=== PATIENT | female | born 1995 | race Caucasian/White ===

== ENCOUNTER 2017-02-10 22:52 | Emergency (ER) | payer OTHER ==
[2017-02-10 22:58] VITALS: TEMP 37.1; Ht 162.6 cm
[2017-02-10] MEDS ORDERED: LEVO75TA PO (23:16)
[2017-02-10] MEDS ORDERED: ASPI81TA28 PO (23:16)
[2017-02-10] MEDS ORDERED: FOLI5CAP PO (23:16)
[2017-02-10] MEDS ORDERED: SODIUM CHLORIDE 0.9% 1000ML 1,000 ML IV STA (23:36)
[2017-02-10 23:52] LABS: BASO % 0.2 %; BASO ABS # 0.02 K/uL (0-0.2); COMPLETE YES; EOS % 1.7 %; HEMATOCRIT 33.3 % (37-47); IG% 0.2 %; LYMPH ABS # 1.97 K/uL (1.2-3.4); MEAN CELL VOLUME 80.4 fL (80-100); MEAN CORPUSCULAR HEMOGLOBIN 27.1 pg (25-34); MEAN CORPUSCULAR HGB CONC 33.6 g/dl (32-36); MEAN PLATELET VOLUME 10.8 fL (7.4-10.4); MONO % 4.7 %; NEUT % 75.2 %; PLATELET COUNT 251 K/uL (130-400); RED BLOOD COUNT 4.14 M/uL (4.2-5.4); WHITE BLOOD COUNT 10.96 K/uL (4.8-10.8)
[2017-02-11 00:13] LABS: ALT/SGPT 14 U/L (12-78); AST/SGOT 7 U/L (15-37); BLOOD UREA NITROGEN 8 mg/dl (7-18); BUN/CREATININE RATIO 16.7 (10-20); CALCIUM 8.6 mg/dl (8.5-10.1); CARBON DIOXIDE 23 mmol/L (21-32); CHLORIDE 107 mmol/L (98-107); CREATININE 0.45 mg/dl (0.60-1.20); GLUCOSE 96 mg/dl (70-99); POTASSIUM 3.3 mmol/L (3.5-5.1); SODIUM 140 mmol/L (136-145)
[2017-02-11 00:16] LABS: ALB/GLOB RATIO 0.8 (0.9-2); ALKALINE PHOSPHATASE 46 U/L (45-117)
--- NOTE | 2017-02-11 00:51 | EMERGENCY ROOM VISIT NOTE ---
History First contact with patient: 23:13 Chief Complaint: PELVIC PAIN Stated Complaint: CRAMPING, NAUSEA, PELVIC PRESSURE- 16WKS History of Present Illness The patient is a 21 year old female who presents to the Emergency Room with complaints of abdominal cramping. The patient states she is approximately 16 weeks . She has had lower abdominal cramping off and on for the past few weeks. She states that her symptoms worsened today. She states she has been vomiting every time she tries to eat something. She states she has had nausea during this , but not much vomiting. She reports she has become dizzy when standing up and has a headache. She denies any vaginal bleeding, urinary symptoms or changes in bowel movements. She states that she has had some vaginal bleeding earlier during this , but ultrasounds have been negative. She has had 2 prior pregnancies, one of which went to term and one ended in a miscarriage at 17 weeks. The patient sees CHILD DEVELOPMENT DIRECTOR in [place]. Review of Systems A complete 10 point review of systems was reviewed with the patient with pertinent positives and negatives as per history of present illness. All else were negative. Social History Smoking Status: Never Smoker Alcohol Use: none Drug Use: none Housing Status: lives with family Current/Historical Medications Scheduled Aspirin (Aspirin Ec), 81 MG PO DAILY Folic Acid (Folic Acid), 1 CAP PO DAILY Levothyroxine Sodium (Synthroid), 75 MCG PO DAILY Physical Exam Vital Signs Date Time Temp Pulse Resp B/P (MAP) Pulse Ox O2 Delivery O2 Flow Rate FiO2 02/11/17 02:39 85 18 127/70 100 02/11/17 00:48 100 18 138/73 100 Room Air 02/10/17 22:58 37.1 103 18 115/78 97 Room Air Physical Exam VITALS: Vitals are noted on the nurse's note and reviewed by myself. Vital signs stable. GENERAL: This is a 21-year-old female, in no acute distress, nondiaphoretic, well-developed well-nourished. HEENT: Normocephalic. PERRLA. EOMI. Mucous membranes moist. Neck is supple without nuchal rigidity. HEART: Regular rate and rhythm without murmurs gallops or rubs. LUNGS: Clear to auscultation bilaterally without wheezes, rales or rhonchi. ABDOMEN: Positive bowel sounds x 4. Soft, nontender to palpation. NEURO: Patient was alert and oriented to person place and time. Medical Decision & Procedures ER Provider Diagnostic Interpretation: US OB LIMITED: Single live intrauterine measuring 16 weeks 2 days with heart rate of 135 bpm. 2 hypoechoic areas in the placenta measuring up to 2.9 cm without evidence of vascularity. Attention on follow-up recommended. NURIS 11.3 cm Cervix not well visualized. Radiologist: Lalita Chavis MD Laboratory Results 02/10/17 23:40 Red Blood Count 4.14, Mean Corpuscular Volume 80.4, Mean Corpuscular Hemoglobin 27.1, Mean Corpuscular Hemoglobin Concent 33.6, Mean Platelet Volume 10.8, Neutrophils (%) (Auto) 75.2, Lymphocytes (%) (Auto) 18.0, Monocytes (%) (Auto) 4.7, Eosinophils (%) (Auto) 1.7, Basophils (%) (Auto) 0.2, Neutrophils # (Auto) 8.25, Lymphocytes # (Auto) 1.97, Monocytes # (Auto) 0.51, Eosinophils # (Auto) 0.19, Basophils # (Auto) 0.02 02/10/17 23:40 Test 02/10/17 23:40 02/11/17 00:50 White Blood Count 10.96 K/uL (4.8-10.8) Red Blood Count 4.14 M/uL (4.2-5.4) Hemoglobin 11.2 g/dL (12.0-16.0) Hematocrit 33.3 % (37-47) Mean Corpuscular Volume 80.4 fL (80-100) Mean Corpuscular Hemoglobin 27.1 pg (25-34) Mean Corpuscular Hemoglobin Concent 33.6 g/dl (32-36) Platelet Count 251 K/uL (130-400) Mean Platelet Volume 10.8 fL (7.4-10.4) Neutrophils (%) (Auto) 75.2 % Lymphocytes (%) (Auto) 18.0 % Monocytes (%) (Auto) 4.7 % Eosinophils (%) (Auto) 1.7 % Basophils (%) (Auto) 0.2 % Neutrophils # (Auto) 8.25 K/uL (1.4-6.5) Lymphocytes # (Auto) 1.97 K/uL (1.2-3.4) Monocytes # (Auto) 0.51 K/uL (0.11-0.59) Eosinophils # (Auto) 0.19 K/uL (0-0.5) Basophils # (Auto) 0.02 K/uL (0-0.2) RDW Standard Deviation 44.3 fL (36.4-46.3) RDW Coefficient of Variation 15.0 % (11.5-14.5) Immature Granulocyte % (Auto) 0.2 % Immature Granulocyte # (Auto) 0.02 K/uL (0.00-0.02) Anion Gap 10.0 mmol/L (3-11) Estimated GFR () > 150.0 Estimated GFR (Non- 143.2 BUN/Creatinine Ratio 16.7 (10-20) Calcium Level 8.6 mg/dl (8.5-10.1) Total Bilirubin 0.2 mg/dl (0.2-1) Aspartate Amino Transf (AST/SGOT) 7 U/L (15-37) Alanine Aminotransferase (ALT/SGPT) 14 U/L (12-78) Alkaline Phosphatase 46 U/L (45-117) Total Protein 7.1 gm/dl (6.4-8.2) Albumin 3.2 gm/dl (3.4-5.0) Globulin 3.9 gm/dl (2.5-4.0) Albumin/Globulin Ratio 0.8 (0.9-2) Lipase 94 U/L (73-393) Urine Color YELLOW Urine Appearance CLOUDY (CLEAR) Urine pH 7.0 (4.5-7.5) Urine Specific Gregory 1.025 (1.000-1.030) Urine Protein 1+ (NEG) Urine Glucose (UA) NEG (NEG) Urine Ketones NEG (NEG) Urine Occult Blood NEG (NEG) Urine Nitrite NEG (NEG) Urine Bilirubin NEG (NEG) Urine Urobilinogen NEG (NEG) Urine Leukocyte Esterase MODERATE (NEG) Urine WBC (Auto) >30 /hpf (0-5) Urine RBC (Auto) 0-4 /hpf (0-4) Urine Hyaline Casts (Auto) 10-30 /lpf (0-5) Urine Epithelial Cells (Auto) >30 /lpf (0-5) Urine Bacteria (Auto) NEG (NEG) Medications Administered Medications (Trade) Dose Ordered Sig/Lillian Route Start Time Stop Time Status Last Admin Dose Admin Sodium Chloride 1,000 ml @ 999 mls/hr Q1H1M STAT IV 02/10/17 23:36 02/11/17 00:36 DC 02/10/17 23:48 999 MLS/HR ED Course The patient was evaluated as above. Labs were drawn and IV access was obtained. Patient was medicated with 1 L normal saline solution. ultrasound was performed and read by radiology as above. Patient was reevaluated and felt much better. She was able to tolerate water and crackers by mouth. Case was discussed with Dr. Dickson of CHILD DEVELOPMENT DIRECTOR. She felt the patient was stable for discharge home to follow-up with her own CHILD DEVELOPMENT DIRECTOR. Discharge instructions were reviewed with the patient. The patient verbalized understanding of my assessment and treatment plan and was discharged home in good condition. Medical Decision Differential diagnosis includes spontaneous , gastroenteritis, colitis, constipation, appendicitis, cholecystitis, among others. The patient is a 21-year-old female who presents today complaining of abdominal cramping and vomiting. The patient reports the cramping has been ongoing for several weeks. The vomiting began today. Labs revealed a minimal leukocytosis consistent with . Labs were otherwise unremarkable. Urinalysis was suggestive of contamination and will be sent for culture. ultrasound shows a viable IUP. The patient had full improvement of her symptoms with 1 L of normal saline solution. She was able to tolerate fluids and food by mouth. Case was discussed with CHILD DEVELOPMENT DIRECTOR who did not feel that the patient required further monitoring. The patient was reassured and instructed to increase fluids at home. She should call her CHILD DEVELOPMENT DIRECTOR later today to schedule follow-up. She verbalized understanding of my assessment and treatment plan and was discharged home in good condition. Medication Reconcilliation Current Medication List: was personally reviewed by me Blood Pressure Screening Patient's blood pressure: Normal blood pressure Impression Primary Impression: Vomiting during Departure Information Dispostion Home / Self-Care Condition GOOD Referrals Homero Duron D.O. (PCP) Patient Instructions [facility] Additional Instructions For pain control, you can use the following [id number] medicines (if >12 yo): - Regular strength (325mg/tab) Tylenol (acetaminophen) 2 tabs every 4-6 hours as needed. Do not exceed 12 tablets in a 24 hour period. Avoid taking more than 4 grams (4000 mg) of Tylenol per day. This includes any other sources of acetaminophen you may take on a regular basis. Drink plenty of fluids to stay well hydrated. Call your CHILD DEVELOPMENT DIRECTOR for morning to schedule a follow-up appointment. Return to the emergency with any worsening pain, vaginal bleeding, worsening vomiting or any other new/concerning symptoms.
[2017-02-11 01:01] LABS: URINE APPEARANCE CLOUDY (CLEAR); URINE BILIRUBIN NEG (NEG); URINE COLOR YELLOW; URINE EPITHELIAL CELL AUTO >30 /lpf (0-5); URINE NITRITE NEG (NEG); URINE SPECIFIC GRAVITY 1.025 (1.000-1.030); UROBILINOGEN NEG (NEG); ZZUR CULT IF INDIC CLEAN CATCH YES
[2017-02-11 01:22] LABS: MANUAL MICROSCOPIC REQUIRED? NO; REVIEW REQ? NO
[2017-02-11 02:39] VITALS: BP 127/70; PULSE 85; O2SAT 100
--- NOTE | 2017-02-11 07:12 | DIAGNOSTIC IMAGING REPORT ---
LIMITED (US) CLINICAL HISTORY: 21 years-old Female presenting with pelvic cramping, approx 16 wks . TECHNIQUE: Real-time grayscale and color and spectral Doppler ultrasound imaging of the pelvis was performed using a transabdominal probe. COMPARISON: None. FINDINGS: Uterus: Single live intrauterine . Femur length measures 2.1 cm corresponding to an estimated gestational age of 16 weeks 2 days. Biparietal diameter measures 3.3 cm corresponding to an estimated gestational age of 16 weeks 2 days. heart rate 136 beats per minute. Anteverted uterus. Normal amniotic fluid volume, with an amniotic fluid index of 11.3 cm. Small hypoechoic avascular crescentic collection subjacent to the placenta along the right lateral aspect concerning for a perigestational hemorrhage. Additional anechoic, cystic appearing avascular region in the placenta measures 2 cm and is indeterminate. Cervix long and closed.. Right adnexa: Not visualized. Left adnexa: Not visualized. Other: No free fluid. IMPRESSION: Single live intrauterine with estimated gestational age of 16 weeks 2 days. Small perigestational hemorrhage suspected. The avascular cystic appearing 2 cm region in the placenta may represent a placental cyst. Attention on follow-up. Electronically signed by: Michael Cardenas M.D. 02/11/2017 7:11 AM Dictated Date/Time: 02/11/2017 7:06 AM
== END 2017-02-11 02:40 | disposition home or self-care (01) ==
LOC: C.EDB 22:58 → C.EDA 02-11 02:40
DX: O21.9 Vomiting of pregnancy, unspecified (principal); Z3A.16 16 weeks gestation of pregnancy; Z79.82 Long term (current) use of aspirin; Z79.899 Other long term (current) drug therapy

== ENCOUNTER → 2017-04-24 | Outpatient (CLI) | payer OTHER ==
[~2017-04-24] MED LIST: ASPI81TA28 PO; FOLI5CAP PO; LEVO75TA PO
[2017-04-24 14:46] LABS: BASO % 0.2 %; BASO ABS # 0.02 K/uL (0-0.2); COMPLETE YES; EOS % 2.5 %; HEMATOCRIT 31.7 % (37-47); IG% 0.6 %; LYMPH % 13.9 %; LYMPH ABS # 1.57 K/uL (1.2-3.4); MEAN CELL VOLUME 82.3 fL (80-100); MEAN CORPUSCULAR HEMOGLOBIN 27.3 pg (25-34); MEAN CORPUSCULAR HGB CONC 33.1 g/dl (32-36); MEAN PLATELET VOLUME 11.3 fL (7.4-10.4); MONO % 5.8 %; PLATELET COUNT 268 K/uL (130-400); RED BLOOD COUNT 3.85 M/uL (4.2-5.4); WHITE BLOOD COUNT 11.29 K/uL (4.8-10.8)
[2017-04-24 15:07] LABS: THYROID STIMULATING HORMONE 1.21 uIu/ml (0.300-4.500)
[2017-04-24 15:46] LABS: GTGD 50 Grams
[2017-04-24 17:11] LABS: URINE APPEARANCE CLOUDY (CLEAR); URINE BILIRUBIN NEG (NEG); URINE COLOR DK YELLOW; URINE EPITHELIAL CELL AUTO >30 /lpf (0-5); URINE NITRITE NEG (NEG); URINE SPECIFIC GRAVITY 1.024 (1.000-1.030); UROBILINOGEN NEG (NEG)
[2017-04-24 17:22] LABS: MANUAL MICROSCOPIC REQUIRED? NO; REVIEW REQ? YES
== END | disposition home or self-care (01) ==
LOC: C.LAB1850 12:58
PROVIDERS: ATTEND Obstetrics & Gynecology
DX: O99.283 Endocrine, nutritional and metabolic diseases complicating pregnancy, third trimester (principal); Z3A.00 Weeks of gestation of pregnancy not specified; E03.9 Hypothyroidism, unspecified

== ENCOUNTER → 2017-05-10 | Outpatient (CLI) | payer OTHER ==
[2017-05-10 16:10] LABS: MANUAL MICROSCOPIC REQUIRED? NO; REVIEW REQ? YES; URINE APPEARANCE CLOUDY (CLEAR); URINE BILIRUBIN NEG (NEG); URINE COLOR DK YELLOW; URINE EPITHELIAL CELL AUTO >30 /lpf (0-5); URINE NITRITE NEG (NEG); URINE SPECIFIC GRAVITY 1.036 (1.000-1.030); UROBILINOGEN NEG (NEG)
== END | disposition home or self-care (01) ==
LOC: C.LABSPEC 15:15
PROVIDERS: ATTEND Obstetrics & Gynecology
DX: O99.282 Endocrine, nutritional and metabolic diseases complicating pregnancy, second trimester (principal)

== ENCOUNTER → 2017-05-24 | Outpatient (CLI) | payer OTHER ==
[~2017-05-24] MED LIST changes: +PRENTAB26 PO
== END | disposition home or self-care (01) ==
LOC: C.LAB1850 16:17
PROVIDERS: ATTEND Obstetrics & Gynecology
DX: O99.283 Endocrine, nutritional and metabolic diseases complicating pregnancy, third trimester (principal); Z3A.00 Weeks of gestation of pregnancy not specified; E03.9 Hypothyroidism, unspecified

== ENCOUNTER → 2017-07-12 | Outpatient (CLI) | payer OTHER ==
[~2017-07-12] MED LIST changes: -PRENTAB26 PO
[2017-07-12 15:38] LABS: HEMATOCRIT 31.5 % (37-47); HEMOGLOBIN 10.4 g/dL (12.0-16.0); MEAN CELL VOLUME 75.5 fL (80-100); MEAN CORPUSCULAR HEMOGLOBIN 24.9 pg (25-34); MEAN PLATELET VOLUME 10.8 fL (7.4-10.4); PLATELET COUNT 268 K/uL (130-400); RED CELL DISTRIBUTION WIDTH CV 16.1 % (11.5-14.5); RED CELL DISTRIBUTION WIDTH SD 44.3 fL (36.4-46.3); WHITE BLOOD COUNT 10.17 K/uL (4.8-10.8)
[2017-07-12 16:11] LABS: ALBUMIN 2.9 gm/dl (3.4-5.0); ALT/SGPT 12 U/L (12-78); AST/SGOT 8 U/L (15-37); BLOOD UREA NITROGEN 8 mg/dl (7-18); CALCIUM 8.6 mg/dl (8.5-10.1); CARBON DIOXIDE 20 mmol/L (21-32); CREATININE 0.48 mg/dl (0.60-1.20); GLUCOSE 73 mg/dl (70-99); POTASSIUM 3.9 mmol/L (3.5-5.1); SODIUM 135 mmol/L (136-145)
[2017-07-12 16:21] LABS: ALKALINE PHOSPHATASE 130 U/L (45-117); TOTAL PROTEIN 7.2 gm/dl (6.4-8.2)
[2017-07-13 07:01] LABS: HEMOGLOBIN A1C 5.3 % (4.5-5.6)
[2017-07-15 14:30] LABS: MICROSOMAL AB 20 IU/ML (<9)
== END | disposition home or self-care (01) ==
LOC: C.LAB1850 14:04
PROVIDERS: ATTEND Obstetrics & Gynecology
DX: O09.93 Supervision of high risk pregnancy, unspecified, third trimester (principal)

== ENCOUNTER 2017-07-20 22:52 | Outpatient (CLI) | payer OTHER ==
[~2017-07-20] VITALS: Ht 162.6 cm; Wt 122.7 kg
[2017-07-21 00:30] VITALS: Ht 162.6 cm; Wt 122.7 kg
[2017-07-21] MEDS ORDERED: PRENTAB26 PO ×2 (00:30)
== END 2017-07-21 01:45 | disposition home or self-care (01) ==
LOC: C.OPB 22:52 → C.LD 22:53 → C.OPB 07-21 01:45
PROVIDERS: ATTEND Obstetrics & Gynecology
DX: O62.9 Abnormality of forces of labor, unspecified (principal); Z3A.00 Weeks of gestation of pregnancy not specified

== ENCOUNTER 2017-07-21 04:28 | Inpatient (IN) | payer OTHER ==
[~2017-07-21] VITALS: Ht 162.6 cm; Wt 122.0 kg
[~2017-07-21 04:28] MED LIST changes: +PRENTAB26 PO
[2017-07-21] MEDS ORDERED: LACTATED RINGER'S 1000ML 1,000 ML IV PRN (04:59)
[2017-07-21] MEDS ORDERED: LACTATED RINGER'S 1000ML 1,000 ML IV SCH (04:59)
[2017-07-21] MEDS ORDERED: PENICILLIN G POTASSIUM IV 6 MU in DEXTROSE 5% 250ML 250 ML IV ONE (05:00)
[2017-07-21] MEDS ORDERED: PENICILLIN G POTASSIUM IV 3 MU in DEXTROSE 5% 100ML 100 ML IV PRN (05:00)
[2017-07-21 05:09] VITALS: Ht 162.6 cm; Wt 122.0 kg
[2017-07-21] MEDS ORDERED: EpHEDrine SULFATE INJ 50 MG/ML AMP ONE (05:24)
[2017-07-21] MEDS ORDERED: BUPIVACAINE 0.25% 30 ML VIAL ONE (05:24)
[2017-07-21] MEDS ORDERED: FENTANYL 2MCG/ML ROPIV 1.25MG/ML 100ML BAG EPI ONE (05:25)
[2017-07-21] MEDS ORDERED: FENTANYL CITRATE INJ 50 MCG/1 ML 2 ML VIAL ONE (05:25)
[2017-07-21 05:50] LABS: HEMATOCRIT 29.7 % (37-47); HEMOGLOBIN 9.8 g/dL (12.0-16.0); MEAN CELL VOLUME 74.4 fL (80-100); MEAN CORPUSCULAR HEMOGLOBIN 24.6 pg (25-34); MEAN PLATELET VOLUME 10.8 fL (7.4-10.4); PLATELET COUNT 230 K/uL (130-400); WHITE BLOOD COUNT 12.41 K/uL (4.8-10.8)
[2017-07-21] MEDS ORDERED: NALOXONE HCL INJ 1 MG in SODIUM CHLORIDE 0.9% 1000ML 1,000 ML IV PRN ×4 (06:20)
[2017-07-21] MEDS ORDERED: LACTATED RINGER'S 1000ML 500 ML IV PRN ×2 (06:20→07:10)
[2017-07-21] MEDS ORDERED: NALBUPHINE HCL INJ 10 MG/ML AMP IV PRN (06:30)
[2017-07-21] MEDS ORDERED: DiphenhydrAMINE HCL 50 MG/ML VIAL IV PRN (06:30)
[2017-07-21] MEDS ORDERED: EpHEDrine SULFATE INJ 50 MG/ML AMP IV PRN (06:30)
[2017-07-21] MEDS ORDERED: PROMETHAZINE HCL INJ 25 MG in SODIUM CHLORIDE 0.9% 50ML 50 ML IV PRN (06:30)
[2017-07-21] MEDS ORDERED: NALOXONE HCL INJ 0.4 MG/1 ML VIAL/CARP IV PRN (06:30)
[2017-07-21] MEDS ORDERED: FENTANYL 2MCG/ML ROPIV 1.25MG/ML 100ML BAG EPI PRN (06:30)
[2017-07-21] MEDS ORDERED: ONDANSETRON INJ 2 MG/ML 2 ML VIAL IV PRN (06:30)
[2017-07-21] MEDS ORDERED: OXYTOCIN 30 UNITS/500ML NSS IV PRN ×2 (07:15→10:30)
[2017-07-21] MEDS ORDERED: BENZOCAINE 20% AER SPR 82.5 GM CAN EXT PRN (10:30)
[2017-07-21] MEDS ORDERED: LANOLIN OINT EXT PRN (10:30)
[2017-07-21] MEDS ORDERED: HYDROCORTISONE ACETATE 25 MG SUPP PR PRN (10:30)
[2017-07-21] MEDS ORDERED: DIPHTHERIA/TETANUS/PERTUSSIS 0.5 ML SYR/VIAL IM. ONE (10:30)
[2017-07-21] MEDS ORDERED: SUPERCREAM 0.870 % 15GM JAR EXT PRN (10:30)
--- NOTE | 2017-07-21 11:15 | Anesthesia Procedure Note ---
Anesthesia Epidural Removal Nt Date & Time Jul 21, 2017 at 11:15 Vital Signs Pain Intensity: 0.0 Notes Mental Status: alert / awake / arousable, participated in evaluation Nausea / Vomiting: adequately controlled Pain: adequately controlled Airway Patency, RR, SpO2: stable & adequate BP & HR: stable & adequate Hydration State: stable & adequate Neuraxial Anesthesia: was administered, sensory block is resolving Anesthetic Complications: no major complications apparent, pt satisfied with anesthetic care Epidural: removed without complications, with tip intact
--- NOTE | 2017-07-21 13:14 | DELIVERY SUMMARY ---
DATE OF OPERATION: 07/21/2017 VAGINAL DELIVERY NOTE Mery arrived after rupture of membranes on 07/21/2017. She is group B strep positive. Some antibiotics were started. She was 4 cm at that time, requested epidural and then progressed to fully dilated. She delivered over a total pushing of one contraction. She was unable to control her efforts and pushed uncontrollably after delivery of the head. Despite this, there was no tearing. Mouth was suctioned and then cord clamped and cut. Cord gases obtained. Cord blood obtained. Placenta removed with gentle traction. IV Pitocin started. No significant tearing noted. Estimated blood loss 150 mL. I attest to the content of the Intraoperative Record and any orders documented therein. Any exception s are noted below.
[2017-07-21 13:20] VITALS: BP 118/77; PULSE 101; TEMP 37
[2017-07-21 15:30] VITALS: BP 110/64; PULSE 94; TEMP 36.9; O2SAT 98
[2017-07-21] MEDS: IBUPROFEN 600 MG TAB PO PRN (18:05)
[2017-07-21 20:00] VITALS: BP 115/66; PULSE 83; TEMP 36.7; O2SAT 98
[2017-07-21] MEDS: DOCUSATE SODIUM 100 MG CAP PO SCH (20:24)
[2017-07-21 23:35] VITALS: BP 122/73; PULSE 78; TEMP 36.9
[2017-07-22 03:25] VITALS: BP 123/79; PULSE 89; TEMP 37
--- NOTE | 2017-07-22 06:31 | Progress Note ---
Subjective Jul 22, 2017. Subjective conversation w/ patient, chart review, lab review Ambulation: ambulating normally Voiding: no voiding problems Passing Gas: No Diet Tolerance: Regular Diet Lochia: Small Objective Vital Signs Date Time Temp Pulse Resp B/P (MAP) Pulse Ox O2 Delivery O2 Flow Rate FiO2 07/22/17 03:25 37.0 89 18 123/79 (94) Room Air 07/21/17 23:35 36.9 78 18 122/73 (89) Room Air 07/21/17 23:35 Room Air 07/21/17 20:00 36.7 83 20 115/66 (82) 98 Room Air 07/21/17 15:30 36.9 94 20 110/64 (79) 98 Room Air 07/21/17 15:30 Room Air 07/21/17 13:20 37.0 101 20 118/77 (91) Room Air 07/21/17 13:20 Room Air Physical Exam General Appearance: WELL-APPEARING Abdomen: non tender Fundus: Firm Extremities: no calf tenderness Laboratory Results Last 24 Hours Test 07/22/17 05:54 Assessment and Plan Post- Day#: 1 Continue Routine Care: day 1 patient is doing well with minimal bleeding she has no calf tenderness continue current care
[2017-07-22] MEDS: IBUPROFEN 600 MG TAB PO PRN (06:52)
[2017-07-22 07:03] LABS: HEMATOCRIT 25.6 % (37-47); HEMOGLOBIN 8.3 g/dL (12.0-16.0)
[2017-07-22] MEDS: LEVOTHYROXINE 75 MCG TAB PO SCH (07:30)
[2017-07-22 07:42] VITALS: BP 118/74; PULSE 82; TEMP 36.9; O2SAT 99
[2017-07-22] MEDS ORDERED: PRENATAL VITAMIN TAB PO SCH (08:00)
[2017-07-22] MEDS: PRENATAL VITAMIN TAB PO SCH (08:00)
[2017-07-22] MEDS: DOCUSATE SODIUM 100 MG CAP PO SCH ×2 (08:00→20:05)
[2017-07-22 15:14] VITALS: BP 111/76; PULSE 82; TEMP 36.7
--- NOTE | 2017-07-22 16:55 | Discharge Instructions ---
Discharge Instructions Date of Service Jul 22, 2017. Admission Reason for Admission: PROM Discharge Discharge Diagnosis / Problem: S/P Discharge Goals Goal(s): Routine recovery after delivery Medications Continue Dispensed Medications: supercream, dermaplast, tucks, lansinoh Activity Recommendations Activity Limitations: per Instructions/Follow-up section . Instructions / Follow-Up Instructions / Follow-Up ACTIVITY RECOMMENDATIONS: * Gradual return to full activity over the next 2-3 weeks. * No lifting - nothing heavier than baby over the next 2-3 weeks. * Do not engage in vigorous exercise, sexual activity or sports until cleared by your physician. * Do not drive or operate any motorized equipment until cleared by your physician. * You may shower/bathe daily. MEDICATIONS: For discomfort or pain, you may use Acetaminophen (Tylenol), Ibuprofen (Advil), or Naproxen (Aleve) following the package directions. For constipation you may use Colace following the package directions. BREAST CARE: If you are not breast feeding: * Wear a supportive bra 24 hours a day for one to two weeks. * Avoid stimulating your breasts and nipples as much as possible during the first few weeks after delivery. * When taking a shower, have the warm water hit your back, not breasts. * When your breasts feel full, apply ice packs. Usually three to four times a day helps ease the discomfort. * Take a mild pain medication (Tylenol / Motrin) when you are uncomfortable. If breast feeding: * Use breast milk to lubricate nipples. Lansinoh cream may be used for sore nipples. You do not need to remove cream prior to breast feeding. If using a different brand of cream, check the label for directions regarding removal of cream prior to nursing. * Wear a supportive bra. * If having problems with breasts or breast feeding, call a nursing consultant or your health care provider. EPISIOTOMY CARE: After delivery, if you have an episiotomy (stitches), the following steps will ease discomfort and aid healing. * For the first 24 hours after delivery, place ice packs next to your episiotomy to help reduce swelling. * After the first 24 hour-period, sitz baths, either portable or in the tub, are suggested. A shower with a shower arm sprayed over the episiotomy may be comforting. * Jenny care should be done after each voiding and bowel movement. Squirt warm water from a plastic bottle over the perineum (region of the body between the anus and urinary opening) and pat dry. * Use Dermoplast to ease discomfort. Shake container. [place] directly over the episiotomy. Place a Tucks on a clean sanitary pad next to your episiotomy. SPECIAL CARE INSTRUCTIONS: When you are discharged from the hospital, it is important for you to follow the instructions listed below: * During the first week at home, you should be able to care for yourself and your baby. In addition, the usual light household activities are encouraged. * Limit your activities to the way you feel. Do not try to clean the house or move furniture. Be sensible. * If you actively engage in sports and have done so up until the time of your delivery, you may resume these activities as soon as you feel able. This may take up to one month or even longer. Use good judgment. * Continue to take your vitamins for at least six weeks after the of your baby. * Your diet need not be limited unless you were on a special diet before your delivery. Breast-feeding mothers need around 2500 calories per day and at least 64-80 ounces of fluid per day (8 to 10 glasses). * You should eat foods from the four major food groups. Crash diets or fad diets are to be avoided. Eating lean meats, fresh fruits and vegetables, low-fat dairy products, high fiber foods and a regular exercise program, will help you get back to your pre- weight without putting your health at risk. * Constipation is sometimes a problem after delivery. Take a mild laxative as needed. If breast feeding, Milk of Magnesia is acceptable to use. You may use a suppository or Fleets enema if no episiotomy. * A daily shower or tub bath is suggested. Be sure to thoroughly and gently dry the perineum. * A bloody vaginal discharge will usually continue until around four weeks post . A small amount of bleeding may continue for as long as six weeks. Vaginal discharge changes from the bright red bleeding after delivery to pink then brownish and finally yellowish-pink before becoming white and disappearing. * Bleeding may increase with activity. Your first period may come in 4-8 weeks. If you are breast feeding, your period may be delayed even longer. * Seagraves (sex) can begin whenever both you and your partner feel comfortable and do not have any form of genital infection. It is recommended that you wait at least six weeks for internal and external healing to occur. If you have questions, please talk to your health care practitioner. A condom should be used to prevent infection and . * Foreplay, gentle intercourse and lubrication is very important the first several times to prevent pain. A water-based lubricant such as K-Y jelly or Astroglide may be used. * If you have RH negative blood and your baby is RH positive, you will receive RHOGAM by injection prior to discharge. The nurse will give you a card to keep with you that has the date and place that you received RHOGAM after delivery. * During your care, you had a Rubella screen done to check for the presence of rubella antibodies in your blood. If your test was negative, you will receive a Rubella vaccine prior to discharge. This vaccine may cause a fever, soreness at the injection site and flu-like symptoms. If these symptoms persist, notify your health care practitioner. is not advised for one month after a Rubella vaccine. * Verbalizes understanding of car seat law as reviewed with patient nursing. * Car Seat hand-out given and reviewed with patient by nursing. * Shaken baby information reviewed with patient by nursing. Call you doctor if: * Heavy bleeding (saturating several pads an hour) or passing clots the size of your fist. * A fever >101 degrees F (38.3 degrees C) on two occasions four hours apart and /or chills. * Unusual pain in the pelvic or vaginal areas. * "Baby Blues" lasting longer than two weeks. If you have any questions or concerns, call your health care practitioner at . FOLLOW UP VISIT: * Please call the office at to schedule a 6 week examination. It is important you keep this appointment. It is important for you to make arrangements for either yearly or twice yearly check-ups thereafter. Current Hospital Diet Patient's current hospital diet: Regular OB Diet Discharge Diet Recommended Diet: Regular OB Diet Pending Studies Studies pending at discharge: no Laboratory Results Hemoglobin A1c Test 07/12/17 14:10 Range/Units Estimated Average Glucose 105 mg/dl Hemoglobin A1c 5.3 4.5-5.6 % Medical Emergencies . Who to Call and When: Medical Emergencies: If at any time you feel your situation is an emergency, please call 911 immediately. . Non-Emergent Contact Non-Emergency issues call your: [employer] . . "Provider Documentation" section prepared by Akanksha Wolf. .
[2017-07-22] MEDS ORDERED: BISACODYL 5 MG TABEC PO SCH (20:00)
[2017-07-22 23:10] VITALS: BP 126/80; PULSE 83; TEMP 36.9
[2017-07-23] MEDS ORDERED: BISACODYL 10 MG SUPP PR PRN (07:00)
[2017-07-23 07:20] LABS: HEMATOCRIT 28.6 % (37-47); HEMOGLOBIN 8.8 g/dL (12.0-16.0); MEAN CELL VOLUME 75.7 fL (80-100); MEAN CORPUSCULAR HEMOGLOBIN 23.3 pg (25-34); MEAN CORPUSCULAR HGB CONC 30.8 g/dl (32-36); MEAN PLATELET VOLUME 10.7 fL (7.4-10.4); PLATELET COUNT 218 K/uL (130-400); RED CELL DISTRIBUTION WIDTH CV 16.5 % (11.5-14.5); RED CELL DISTRIBUTION WIDTH SD 45.4 fL (36.4-46.3)
[2017-07-23 07:30] VITALS: BP 120/83; PULSE 85; TEMP 36.6; O2SAT 99
[2017-07-23] MEDS: DOCUSATE SODIUM 100 MG CAP PO SCH (07:32)
[2017-07-23] MEDS: LEVOTHYROXINE 75 MCG TAB PO SCH (07:32)
[2017-07-23] MEDS: PRENATAL VITAMIN TAB PO SCH (07:32)
--- NOTE | 2017-07-23 07:48 | Progress Note ---
Subjective Jul 23, 2017. Subjective conversation w/ patient, conversation w/ family, physical exam, chart review, lab review Ambulation: ambulating normally Voiding: no voiding problems Passing Gas: Yes Diet Tolerance: Regular Diet Lochia: Small Feeding Type: Breast Feeding Pain: General soreness, no acute pain Comment: Seen and examined at bedside, reports no acute overnight events. Review of Systems Constitutional: No fever, No chills, No sweats, No weight loss, No weakness, No fatigue, No problem reported Respiratory: No cough, No sputum, No wheezing, No shortness of breath, No dyspnea on exertion, No dyspnea at rest, No hemoptysis, No problem reported Cardiac: No chest pain, No orthopnea, No PND, No edema, No claudication, No palpitations, No problem reported Breast: No breast lump, No change in shape, No nipple discharge, No breast pain , No problem reported Abdomen: No pain, No nausea, No vomiting, No diarrhea, No constipation, No GI bleeding, No problem reported Female : No see HPI, No dysuria, No urinary frequency, No hematuria, No incontinence, No abnormal vaginal bleeding, No vaginal discharge, No problem reported Denies headaches or calf tenderness. Does report continued restless legs. Objective Vital Signs Date Time Temp Pulse Resp B/P (MAP) Pulse Ox O2 Delivery O2 Flow Rate FiO2 07/22/17 23:10 Room Air 07/22/17 23:10 36.9 83 16 126/80 (95) Room Air 07/22/17 15:15 Room Air 07/22/17 15:14 36.7 82 20 111/76 (88) Room Air Physical Exam General Appearance: WELL-APPEARING, WD/WN, NO APPARENT DISTRESS Respiratory/Chest: chest non-tender, lungs clear, normal breath sounds, no respiratory distress Cardiovascular: regular rate, rhythm, no edema, no gallop, no murmur Abdomen: normal bowel sounds, non tender, soft Fundus: Firm, Non-Tender, Relation to Umbilicus (2 cm below) Extremities: normal range of motion, non-tender, normal inspection, no pedal edema, no calf tenderness Laboratory Results Last 24 Hours Test 07/23/17 06:51 White Blood Count 12.70 K/uL Red Blood Count 3.78 M/uL Hemoglobin 8.8 g/dL Hematocrit 28.6 % Mean Corpuscular Volume 75.7 fL Mean Corpuscular Hemoglobin 23.3 pg Mean Corpuscular Hemoglobin Concent 30.8 g/dl RDW Standard Deviation 45.4 fL RDW Coefficient of Variation 16.5 % Platelet Count 218 K/uL Mean Platelet Volume 10.7 fL Medications Current Inpatient Medications Medications (Trade) Dose Ordered Sig/Lillian Route Start Time Stop Time Status Last Admin Dose Admin Lactated Ringer's 1,000 ml @ 999 mls/hr Q1H1M PRN IV 07/21/17 04:59 08/20/17 04:58 07/21/17 05:20 999 MLS/HR Oxytocin (Pitocin IV) 30 units UD PRN IV 07/21/17 07:15 08/20/17 07:14 07/21/17 11:23 30 UNITS Lactated Ringer's 500 ml @ 999 mls/hr Q31M PRN IV 07/21/17 07:10 08/20/17 07:09 Oxytocin (Pitocin IV) 30 units UD PRN IV 07/21/17 10:30 08/20/17 10:29 Benzocaine (Dermoplast Aero Spr) 1 appln PRN PRN EXT 07/21/17 10:30 08/20/17 10:29 Cocaine HCl (Supercream 0.870% Cr) BID PRN EXT 07/21/17 10:30 08/04/17 10:29 Hydrocortisone Acetate (Anusol Hc Supp) 25 mg BID PRN CA 07/21/17 10:30 08/20/17 10:29 Lanolin (Lanolin Oint) PRN PRN EXT 07/21/17 10:30 08/20/17 10:29 Prenat Multivit/ [place]/Iron/Folic Ac ( Vitamin Tab) 1 tab DAILY PO 07/22/17 08:00 08/21/17 07:59 07/23/17 07:32 1 TAB Ibuprofen (Motrin Tab) 600 mg Q4H PRN PO 07/21/17 10:30 08/20/17 10:29 07/22/17 06:52 600 MG Bisacodyl (Dulcolax Supp) 10 mg DAILY PRN CA 07/23/17 07:00 Docusate Sodium (coLACE CAP) 100 mg BID PO 07/21/17 20:00 08/20/17 19:59 07/23/17 07:32 100 MG Levothyroxine Sodium (Synthroid Tab) 75 mcg DAILYBB PO 07/22/17 07:30 08/21/17 07:29 07/23/17 07:32 75 MCG Assessment and Plan Post- Day#: 2 Continue Routine Care: AFVSS Hb reviewed: 8.1--8.8 Blood type A pos, GBS pos, rubella immune pt doing well clinically, encouraging ambulation, monitoring pain control Has resumed regular diet monitor lochia encouraged breast feeding Reports using condoms for control from here forward Pt counselled on discharge instructions Resident Physician Supervision Note: I interviewed and examined the patient. Discussed with Dr. Wolf and agree with findings and plan as documented in the note. Any exceptions or clarifications are listed here: Doing well. Plan d/c. Instructions reviewed. Documented By: Luci Dickson Resident Tracking Resident Involvement: Resident Care Provided Care Provided: OB Delivery
[2017-07-23 11:34] VITALS: BP_DIAS 83; PULSE 85; TEMP 36.6
== END 2017-07-23 11:34 | disposition home or self-care (01) | DRG 775 ==
LOC: C.OPB 04:28 → C.LD 04:29 → C.OPB 05:05 → C.OBG 13:39
PROVIDERS: ADMIT Obstetrics & Gynecology; ATTEND Obstetrics & Gynecology
PROC: 10E0XZZ Delivery of Products of Conception, External Approach (ICD-10-PCS; principal; 2017-07-21)
DX: O99.824 Streptococcus B carrier state complicating childbirth (principal); Z68.41 Body mass index [BMI] 40.0-44.9, adult; Z37.0 Single live birth; O99.284 Endocrine, nutritional and metabolic diseases complicating childbirth; E03.9 Hypothyroidism, unspecified; O99.52 Diseases of the respiratory system complicating childbirth; J45.909 Unspecified asthma, uncomplicated; O99.214 Obesity complicating childbirth; E66.01 Morbid (severe) obesity due to excess calories; Z3A.38 38 weeks gestation of pregnancy; Z88.5 Allergy status to narcotic agent; Z88.6 Allergy status to analgesic agent; Z79.899 Other long term (current) drug therapy

== ENCOUNTER → 2017-12-05 | Outpatient (CLI) | payer OTHER ==
[~2017-12-05] MED LIST changes: -ASPI81TA28 PO; -FOLI5CAP PO
== END | disposition home or self-care (01) ==
LOC: C.LABSPEC 15:51
PROVIDERS: ATTEND Obstetrics & Gynecology
DX: O09.91 Supervision of high risk pregnancy, unspecified, first trimester (principal); Z3A.00 Weeks of gestation of pregnancy not specified

== ENCOUNTER → 2017-12-06 | Outpatient (CLI) | payer OTHER ==
[2017-12-06 14:48] LABS: MEAN CORPUSCULAR HGB CONC 32.9 g/dl (32-36); MEAN PLATELET VOLUME 10.7 fL (7.4-10.4); PLATELET COUNT 315 K/uL (130-400)
[2017-12-06 15:14] LABS: BASO % 0.4 %; BASO ABS # 0.04 K/uL (0-0.2); EOS % 1.8 %; EOS ABS # 0.18 K/uL (0-0.5); HEMATOCRIT 35.9 % (37-47); HEMOGLOBIN 11.8 g/dL (12.0-16.0); IG# 0.01 K/uL (0.00-0.02); LYMPH % 24.7 %; LYMPH ABS # 2.43 K/uL (1.2-3.4); MEAN CELL VOLUME 76.7 fL (80-100); MEAN CORPUSCULAR HEMOGLOBIN 25.2 pg (25-34); MONO % 5.4 %; MONO ABS # 0.53 K/uL (0.11-0.59); NEUT % 67.6 %; NEUT ABS # 6.64 K/uL (1.4-6.5); RED CELL DISTRIBUTION WIDTH CV 18.9 % (11.5-14.5); RED CELL DISTRIBUTION WIDTH SD 53.1 fL (36.4-46.3); WHITE BLOOD COUNT 9.83 K/uL (4.8-10.8)
== END | disposition home or self-care (01) ==
LOC: C.LAB1850 12:38
PROVIDERS: ATTEND Obstetrics & Gynecology
DX: O09.91 Supervision of high risk pregnancy, unspecified, first trimester (principal); O99.280 Endocrine, nutritional and metabolic diseases complicating pregnancy, unspecified trimester

== ENCOUNTER → 2017-12-09 | Outpatient (CLI) | payer OTHER | END | disposition home or self-care (01) | LOC: C.LAB1850 09:55 | PROVIDERS: ATTEND Obstetrics & Gynecology | DX: O09.91 Supervision of high risk pregnancy, unspecified, first trimester (principal); Z3A.00 Weeks of gestation of pregnancy not specified ==